=== PATIENT | female | born 1960 | race African-American/Black ===

== ENCOUNTER 2023-01-03 10:14 | Emergency (ER) | payer MEDICAID ==
[~2023-01-03] VITALS: Ht 157.5 cm; Wt 160.0 kg
[2023-01-03 11:46] VITALS: BP 110/67
[2023-01-03] MEDS ORDERED: METH-1182 PO (13:18)
[2023-01-03] MEDS ORDERED: IBUP-1456 PO (13:18)
== END 2023-01-03 13:31 | disposition home or self-care (01) ==
LOC: ER 10:14
DX: S16.1XXA Strain of muscle, fascia and tendon at neck level, initial encounter (principal); S39.012A Strain of muscle, fascia and tendon of lower back, initial encounter; V43.52XA Car driver injured in collision with other type car in traffic accident, initial encounter; Y93.89 Activity, other specified; Y92.89 Other specified places as the place of occurrence of the external cause; Y99.8 Other external cause status
CPT/HCPCS: 72040; 72100

== ENCOUNTER 2023-02-22 13:35 | Inpatient (IN) | payer MEDICAID ==
[~2023-02-22] VITALS: Ht 157.5 cm; Wt 95.0 kg
[~2023-02-22 13:35] MED LIST: IBUP-1456 PO; METH-1182 PO
[2023-02-22] MEDS ORDERED: SODIUM CHLORIDE 0.9% 1,000 ML IV ONE ×3 (14:00→16:30)
[2023-02-22 14:26] LABS: Basophils # (auto) 0.1 10 ^3/uL (0-0.2); Basophils % (auto) 0.5 % (0.0-2.0); Eosinophils # (auto) 0.1 10 ^3/uL (0-0.8); Eosinophils % (auto) 0.7 % (0.0-7.0); Hemoglobin 15.1 g/dL (12.2-16.2); Lymphocytes # (auto) 1.8 10 ^3/uL (0.4-5.4); Lymphocytes % (auto) 11.9 % (10.0-50.0); Mean Corpuscular Hemoglobin 29.1 pg (28.0-32.0); Mean Corpuscular Hgb Conc. 34.4 g/dL (32.0-36.0); Mean Corpuscular Volume 84.7 fL (80.0-100.0); Monocytes # (auto) 0.9 10 ^3/uL (0-1.3); Monocytes % (auto) 6.2 % (0.0-12.0); Neutrophils % (auto) 80.7 % (37.0-80.0); Nucleated Red Blood Cells % 0.1 %; Red Blood Cells 5.19 10^6/uL (4.0-5.20); Red Cell Distribution Width 14.9 % (11.8-14.3); White Blood Cell 14.9 10^3/uL (4.4-10.8)
[2023-02-22 14:49] LABS: Urine Bacteria FEW /hpf (None Seen); Urine Blood 1+ /uL (Negative); Urine Clarity HAZY (Clear); Urine Color Yellow (Yellow); Urine Hyaline Cast FEW /lpf (0 - 2); Urine Mucus FEW (None Seen); Urine Protein, UAD 1+ (Negative); Urine Specific Gravity 1.019 (1.001-1.035); Urine Urobilinogen Normal (Negative); Urine WBC 108 /hpf (0 - 5); Urine WBC Clumps PRESENT /hpf (None Seen); Urine pH 5.5 (5.0-8.0)
[2023-02-22 15:08] LABS: Alanine Aminotransferase 27 U/L (7-40); Albumin 4.4 g/dL (3.2-4.8); Alkaline Phosphatase 79 U/L (46-116); Anion Gap 10.4 (5-15); Aspartate Aminotransferase 11 U/L (13-40); BUN/Creatinine Ratio 13.3 (10.0-20.0); Bilirubin, Total 0.6 mg/dL (0.2-1.0); Blood Urea Nitrogen 12 mg/dL (9-23); Calcium 10.7 mg/dL (8.5-10.1); Carbon Dioxide 21.6 mmol/L (20-30); Chloride 106 mmol/L (98-107); Glucose 176 mg/dL (74-106); Potassium 3.3 mmol/L (3.5-5.1); Sodium 138 mmol/L (136-145); Total Protein 7.1 g/dL (5.7-8.2)
[2023-02-22] MEDS ORDERED: KETOROLAC TROMETH 30 MG/ML 1ML VIAL IV ONE (16:30)
[2023-02-22] MEDS ORDERED: POTASSIUM EFFERVESENT TAB 25 MEQ PO ONE (16:30)
[2023-02-22] MEDS: ACCU-CHEK COMFORT CURVE STRIP VI SCH ×2 (17:00→22:44)
[2023-02-22] MEDS ORDERED: ONDANSETRON HCL 4 MG/2 ML VIAL IV PRN (17:00)
[2023-02-22] MEDS ORDERED: DEXTROSE (50%) 50ML SYRG IV PRN (17:00)
[2023-02-22] MEDS: InsuLIN REG 1unit/0.01ml Soln (100units/ml) SC SCH ×2 (17:00→22:00)
[2023-02-22] MEDS: TAMSULOSIN HYDROCHLORIDE 0.4 MG CAP PO SCH (19:17)
[2023-02-22] MEDS: SODIUM CHLORIDE 0.9% 1,000 ML IV SCH (21:00)
[2023-02-22] MEDS: KETOROLAC TROMETH 30 MG/ML 1ML VIAL IV PRN (22:38)
[2023-02-23 05:00] VITALS: BP 100/62; PULSE 77; RESP 17; TEMP 98.2; O2SAT 99
[2023-02-23] MEDS: InsuLIN REG 1unit/0.01ml Soln (100units/ml) SC SCH ×4 (06:36→21:47)
[2023-02-23] MEDS: ACCU-CHEK COMFORT CURVE STRIP VI SCH ×4 (06:38→21:47)
[2023-02-23] MEDS: SODIUM CHLORIDE 0.9% 1,000 ML IV SCH ×4 (06:38→17:10)
[2023-02-23 07:08] LABS: Alanine Aminotransferase 20 U/L (7-40); Albumin 3.9 g/dL (3.2-4.8); Alkaline Phosphatase 65 U/L (46-116); Anion Gap 6.4 (5-15); Aspartate Aminotransferase 16 U/L (13-40); BUN/Creatinine Ratio 13.7 (10.0-20.0); Bilirubin, Total 0.3 mg/dL (0.2-1.0); Blood Urea Nitrogen 10 mg/dL (9-23); Carbon Dioxide 25.6 mmol/L (20-30); Chloride 108 mmol/L (98-107); Glucose 121 mg/dL (74-106); Potassium 3.7 mmol/L (3.5-5.1); Sodium 140 mmol/L (136-145); Total Protein 6.6 g/dL (5.7-8.2)
[2023-02-23 07:40] LABS: Basophils # (auto) 0.1 10 ^3/uL (0-0.2); Basophils % (auto) 0.7 % (0.0-2.0); Eosinophils # (auto) 0.4 10 ^3/uL (0-0.8); Eosinophils % (auto) 4.1 % (0.0-7.0); Hematocrit 39.7 % (36.0-46.0); Hemoglobin 13.7 g/dL (12.2-16.2); Lymphocytes # (auto) 1.8 10 ^3/uL (0.4-5.4); Mean Corpuscular Hgb Conc. 34.4 g/dL (32.0-36.0); Mean Corpuscular Volume 87.2 fL (80.0-100.0); Monocytes # (auto) 1.1 10 ^3/uL (0-1.3); Monocytes % (auto) 11.7 % (0.0-12.0); Neutrophils % (auto) 64.5 % (37.0-80.0); Nucleated Red Blood Cells % 0.1 %; Red Blood Cells 4.55 10^6/uL (4.0-5.20); Red Cell Distribution Width 14.6 % (11.8-14.3); White Blood Cell 9.3 10^3/uL (4.4-10.8)
[2023-02-23] MEDS: cefTRIAXone 1GM/50ML D5W 50 ML IV SCH (08:46)
[2023-02-23 09:00] VITALS: BP 107/73; PULSE 76; RESP 18; TEMP 98.6; O2SAT 96
[2023-02-23] MEDS: KETOROLAC TROMETH 30 MG/ML 1ML VIAL IV PRN (11:29)
[2023-02-23] MEDS ORDERED: MECLIZINE HCL 25 MG TAB PO ONE (12:30)
[2023-02-23] MEDS ORDERED: ENOXAPARIN SOD 40 MG/0.4 ML SYRINGE SC ONE (12:45)
[2023-02-23 13:00] VITALS: BP 110/62; PULSE 74; RESP 18; TEMP 97.6; O2SAT 98
[2023-02-23 17:00] VITALS: BP 99/56; PULSE 78; RESP 17; TEMP 97.9; O2SAT 97
[2023-02-23] MEDS: TAMSULOSIN HYDROCHLORIDE 0.4 MG CAP PO SCH (17:10)
[2023-02-23 20:00] VITALS: RESP 18
[2023-02-23] MEDS ORDERED: MECLIZINE HCL 25 MG TAB PO PRN (20:00)
[2023-02-23] MEDS: MORPHINE SULFATE INJ 2 MG/ml SYRG IV PRN (21:57)
[2023-02-23 22:31] VITALS: BP 107/65; PULSE 77; RESP 18; TEMP 98.7; O2SAT 97
[2023-02-24] MEDS: SODIUM CHLORIDE 0.9% 1,000 ML IV SCH ×3 (02:20→19:03)
[2023-02-24 04:57] VITALS: BP 101/67; PULSE 79; RESP 18; TEMP 98.2; O2SAT 96
[2023-02-24] MEDS: ACCU-CHEK COMFORT CURVE STRIP VI SCH ×4 (06:08→21:23)
[2023-02-24 06:09] LABS: Basophils # (auto) 0.1 10 ^3/uL (0-0.2); Eosinophils # (auto) 0.4 10 ^3/uL (0-0.8); Eosinophils % (auto) 4.9 % (0.0-7.0); Hematocrit 38.9 % (36.0-46.0); Hemoglobin 13.3 g/dL (12.2-16.2); Lymphocytes # (auto) 2.3 10 ^3/uL (0.4-5.4); Lymphocytes % (auto) 30.7 % (10.0-50.0); Mean Corpuscular Hemoglobin 29.4 pg (28.0-32.0); Mean Corpuscular Hgb Conc. 34.2 g/dL (32.0-36.0); Mean Corpuscular Volume 85.8 fL (80.0-100.0); Monocytes # (auto) 0.8 10 ^3/uL (0-1.3); Neutrophils % (auto) 52.4 % (37.0-80.0); Nucleated Red Blood Cells % 0.1 %; Red Blood Cells 4.53 10^6/uL (4.0-5.20); Red Cell Distribution Width 14.7 % (11.8-14.3); White Blood Cell 7.5 10^3/uL (4.4-10.8)
[2023-02-24] MEDS: InsuLIN REG 1unit/0.01ml Soln (100units/ml) SC SCH ×4 (06:09→21:23)
[2023-02-24 06:37] LABS: Alanine Aminotransferase 28 U/L (7-40); Albumin 3.8 g/dL (3.2-4.8); Alkaline Phosphatase 62 U/L (46-116); Anion Gap 6.1 (5-15); Aspartate Aminotransferase 26 U/L (13-40); BUN/Creatinine Ratio 9.5 (10.0-20.0); Bilirubin, Total 0.3 mg/dL (0.2-1.0); Blood Urea Nitrogen 6 mg/dL (9-23); Carbon Dioxide 24.9 mmol/L (20-30); Chloride 110 mmol/L (98-107); Glucose 114 mg/dL (74-106); Potassium 3.7 mmol/L (3.5-5.1); Sodium 141 mmol/L (136-145); Total Protein 6.4 g/dL (5.7-8.2)
[2023-02-24 09:00] VITALS: BP 100/63; PULSE 75; RESP 18; TEMP 98; O2SAT 98
[2023-02-24] MEDS: cefTRIAXone 1GM/50ML D5W 50 ML IV SCH (09:18)
[2023-02-24] MEDS ORDERED: ENOXAPARIN SOD 40 MG/0.4 ML SYRINGE SC SCH (10:00)
[2023-02-24] MEDS: KETOROLAC TROMETH 30 MG/ML 1ML VIAL IV PRN (12:25)
[2023-02-24 13:00] VITALS: BP 119/95; PULSE 65; RESP 18; TEMP 97.8; O2SAT 94
[2023-02-24 17:00] VITALS: BP 103/58; PULSE 74; RESP 18; TEMP 97.7; O2SAT 93
[2023-02-24] MEDS: TAMSULOSIN HYDROCHLORIDE 0.4 MG CAP PO SCH (17:41)
[2023-02-24 20:00] VITALS: RESP 18
[2023-02-24] MEDS: MORPHINE SULFATE INJ 2 MG/ml SYRG IV PRN (21:35)
[2023-02-24 22:53] VITALS: BP 113/52; PULSE 79; RESP 18; TEMP 98.4; O2SAT 97
[2023-02-25] VITALS (7 sets, daily range): BP systolic 108–119; BP diastolic 61–75; PULSE 60–88; RESP 18–21; TEMP 97.5–98.2; O2SAT 97–98
[2023-02-25] MEDS: SODIUM CHLORIDE 0.9% 1,000 ML IV SCH ×4 (03:20→22:36)
[2023-02-25] MEDS: ACCU-CHEK COMFORT CURVE STRIP VI SCH ×4 (06:07→22:20)
[2023-02-25] MEDS: InsuLIN REG 1unit/0.01ml Soln (100units/ml) SC SCH ×4 (06:12→22:47)
[2023-02-25] MEDS: cefTRIAXone 1GM/50ML D5W 50 ML IV SCH (11:28)
[2023-02-25] MEDS: MORPHINE SULFATE INJ 2 MG/ml SYRG IV PRN ×2 (11:29→22:31)
[2023-02-25] MEDS: MANNITOL FTV 25% 12.5 GM/50 ML 50 ML IV ONE ×2 (12:45→18:16)
[2023-02-25] MEDS: TAMSULOSIN HYDROCHLORIDE 0.4 MG CAP PO SCH (18:16)
[2023-02-25] MEDS: DOCUSATE SOD 100 MG CAP PO PRN (22:29)
[2023-02-26] VITALS (7 sets, daily range): BP systolic 96–121; BP diastolic 56–87; PULSE 53–73; RESP 15–22; TEMP 97.7–98.2; O2SAT 94–99
[2023-02-26 06:21] LABS: Basophils # (auto) 0.1 10 ^3/uL (0-0.2); Basophils % (auto) 0.9 % (0.0-2.0); Eosinophils # (auto) 0.4 10 ^3/uL (0-0.8); Eosinophils % (auto) 4.8 % (0.0-7.0); Hematocrit 41.6 % (36.0-46.0); Hemoglobin 14.1 g/dL (12.2-16.2); Lymphocytes # (auto) 2.5 10 ^3/uL (0.4-5.4); Lymphocytes % (auto) 29.9 % (10.0-50.0); Mean Corpuscular Volume 85.2 fL (80.0-100.0); Monocytes # (auto) 0.5 10 ^3/uL (0-1.3); Monocytes % (auto) 5.7 % (0.0-12.0); Neutrophils # (auto) 4.8 10 ^3/uL (1.6-8.6); Neutrophils % (auto) 58.7 % (37.0-80.0); Nucleated Red Blood Cells % 0.1 %; Red Blood Cells 4.89 10^6/uL (4.0-5.20); Red Cell Distribution Width 14.4 % (11.8-14.3); White Blood Cell 8.2 10^3/uL (4.4-10.8)
[2023-02-26 06:24] LABS: Chloride 107 mmol/L (98-107); Potassium 3.9 mmol/L (3.5-5.1); Sodium 140 mmol/L (136-145)
[2023-02-26 06:25] LABS: Anion Gap 6.4 (5-15); Carbon Dioxide 26.6 mmol/L (20-30)
[2023-02-26 06:26] LABS: Calcium 10.4 mg/dL (8.7-10.4)
[2023-02-26 06:30] LABS: Blood Urea Nitrogen 5 mg/dL (9-23); Glucose 111 mg/dL (74-106)
[2023-02-26] MEDS ORDERED: HYDROcodone-ACET 5/325MG TAB PO ONE (06:30)
[2023-02-26] MEDS: InsuLIN REG 1unit/0.01ml Soln (100units/ml) SC SCH ×4 (06:39→21:44)
[2023-02-26] MEDS: ACCU-CHEK COMFORT CURVE STRIP VI SCH ×4 (07:00→21:57)
[2023-02-26 07:13] LABS: BUN/Creatinine Ratio 7.7 (10.0-20.0)
[2023-02-26] MEDS: cefTRIAXone 1GM/50ML D5W 50 ML IV SCH (08:08)
[2023-02-26] MEDS: SODIUM CHLORIDE 0.9% 1,000 ML IV SCH ×2 (12:40→22:03)
[2023-02-26] MEDS ORDERED: MANNITOL FTV 25% 12.5 GM/50 ML 50 ML IV ONE (13:00)
[2023-02-26] MEDS: HYDROcodone-ACET 5/325MG TAB PO PRN ×2 (13:07→21:50)
[2023-02-26] MEDS: DOCUSATE SOD 100 MG CAP PO PRN (21:56)
[2023-02-27] MEDS: SODIUM CHLORIDE 0.9% 1,000 ML IV SCH ×3 (05:20→22:00)
[2023-02-27 05:28] VITALS: BP 131/72; PULSE 53; RESP 14; TEMP 97; O2SAT 98
[2023-02-27] MEDS: ACCU-CHEK COMFORT CURVE STRIP VI SCH ×4 (06:30→22:00)
[2023-02-27] MEDS: InsuLIN REG 1unit/0.01ml Soln (100units/ml) SC SCH ×4 (06:32→22:00)
[2023-02-27 06:56] LABS: Basophils # (auto) 0.1 10 ^3/uL (0-0.2); Basophils % (auto) 0.9 % (0.0-2.0); Eosinophils # (auto) 0.4 10 ^3/uL (0-0.8); Eosinophils % (auto) 3.9 % (0.0-7.0); Hemoglobin 13.9 g/dL (12.2-16.2); Lymphocytes # (auto) 3.2 10 ^3/uL (0.4-5.4); Mean Corpuscular Hemoglobin 29.1 pg (28.0-32.0); Mean Corpuscular Hgb Conc. 33.9 g/dL (32.0-36.0); Mean Corpuscular Volume 85.8 fL (80.0-100.0); Monocytes # (auto) 0.5 10 ^3/uL (0-1.3); Monocytes % (auto) 4.7 % (0.0-12.0); Neutrophils # (auto) 6.7 10 ^3/uL (1.6-8.6); Neutrophils % (auto) 61.5 % (37.0-80.0); Nucleated Red Blood Cells % 0.1 %; Red Blood Cells 4.78 10^6/uL (4.0-5.20); Red Cell Distribution Width 14.4 % (11.8-14.3)
[2023-02-27 07:12] LABS: Alanine Aminotransferase 68 U/L (7-40); Alkaline Phosphatase 71 U/L (46-116); Anion Gap 4.9 (5-15); Aspartate Aminotransferase 56 U/L (13-40); BUN/Creatinine Ratio 9.1 (10.0-20.0); Blood Urea Nitrogen 7 mg/dL (9-23); Calcium 10.4 mg/dL (8.7-10.4); Carbon Dioxide 27.1 mmol/L (20-30); Chloride 108 mmol/L (98-107); Glucose 119 mg/dL (74-106); Sodium 140 mmol/L (136-145)
[2023-02-27 07:13] LABS: Bilirubin, Total 0.4 mg/dL (0.2-1.0); Total Protein 6.7 g/dL (5.7-8.2)
[2023-02-27 07:51] VITALS: PULSE 71; RESP 18
[2023-02-27] MEDS: cefTRIAXone 1GM/50ML D5W 50 ML IV SCH (07:54)
[2023-02-27 09:00] VITALS: BP 127/74; PULSE 74; RESP 17; TEMP 97.5; O2SAT 96
[2023-02-27] MEDS: HYDROcodone-ACET 5/325MG TAB PO PRN ×2 (10:16→18:31)
[2023-02-27 13:00] VITALS: BP 114/68; PULSE 79; RESP 18; TEMP 97.8; O2SAT 96
[2023-02-27 17:00] VITALS: BP 104/65; PULSE 71; RESP 17; TEMP 97.7; O2SAT 98
[2023-02-27] MEDS: TAMSULOSIN HYDROCHLORIDE 0.4 MG CAP PO SCH (18:00)
[2023-02-27 20:00] VITALS: RESP 18
[2023-02-28 05:31] VITALS: BP 114/60; PULSE 64; RESP 15; TEMP 97.5; O2SAT 98
[2023-02-28] MEDS: SODIUM CHLORIDE 0.9% 1,000 ML IV SCH ×3 (06:20→23:00)
[2023-02-28] MEDS: InsuLIN REG 1unit/0.01ml Soln (100units/ml) SC SCH ×4 (06:38→22:00)
[2023-02-28] MEDS: ACCU-CHEK COMFORT CURVE STRIP VI SCH ×4 (06:38→22:00)
[2023-02-28 07:32] LABS: Basophils # (auto) 0.1 10 ^3/uL (0-0.2); Basophils % (auto) 0.8 % (0.0-2.0); Eosinophils # (auto) 0.4 10 ^3/uL (0-0.8); Eosinophils % (auto) 4.2 % (0.0-7.0); Hematocrit 40.6 % (36.0-46.0); Lymphocytes % (auto) 29.9 % (10.0-50.0); Mean Corpuscular Hemoglobin 29.2 pg (28.0-32.0); Mean Corpuscular Hgb Conc. 34.4 g/dL (32.0-36.0); Monocytes # (auto) 0.5 10 ^3/uL (0-1.3); Monocytes % (auto) 4.6 % (0.0-12.0); Neutrophils # (auto) 6.1 10 ^3/uL (1.6-8.6); Neutrophils % (auto) 60.5 % (37.0-80.0); Nucleated Red Blood Cells % 0.1 %; Red Blood Cells 4.78 10^6/uL (4.0-5.20); Red Cell Distribution Width 14.6 % (11.8-14.3)
[2023-02-28 07:34] LABS: INR 1.16 (0.9-1.15); Partial Thromboplastin Time 25.9 SEC (24.5-34.5); Prothrombin Time 12.1 sec (9.3-11.8)
[2023-02-28 08:24] LABS: Alanine Aminotransferase 59 U/L (7-40); Alkaline Phosphatase 72 U/L (46-116); Anion Gap 5.7 (5-15); Aspartate Aminotransferase 31 U/L (13-40); BUN/Creatinine Ratio 8.9 (10.0-20.0); Blood Urea Nitrogen 7 mg/dL (9-23); Calcium 10.4 mg/dL (8.7-10.4); Carbon Dioxide 27.3 mmol/L (20-30); Chloride 107 mmol/L (98-107); Glucose 119 mg/dL (74-106); Potassium 4.1 mmol/L (3.5-5.1); Sodium 140 mmol/L (136-145)
[2023-02-28 08:25] LABS: Bilirubin, Total 0.4 mg/dL (0.2-1.0); Total Protein 6.7 g/dL (5.7-8.2)
[2023-02-28] MEDS: cefTRIAXone 1GM/50ML D5W 50 ML IV SCH (09:00)
[2023-02-28] MEDS ORDERED: CIPROFLOXACIN 400MG/200ML 200 ML IV ONE (10:21)
[2023-02-28] MEDS ORDERED: MIDAZOLAM HCL 2MG/2ML 2ml VIAL (1mg/ml) ONE (10:49)
[2023-02-28] MEDS ORDERED: fentaNYL CITRATE 100 MCG/2 ML VL ONE (10:49)
[2023-02-28] MEDS ORDERED: MANNITOL FTV 25% 12.5 GM/50 ML 50 ML IV ONE (12:15)
[2023-02-28] MEDS ORDERED: PROPOFOL 10 MG/ML 20 ML IV ONE (12:52)
[2023-02-28] MEDS ORDERED: ONDANSETRON HCL 4 MG/2 ML VIAL ONE (12:53)
[2023-02-28 12:56] VITALS: RESP 18; O2SAT 96
[2023-02-28] MEDS: HYDROcodone-ACET 5/325MG TAB PO PRN ×2 (15:28→21:01)
[2023-02-28] MEDS: TAMSULOSIN HYDROCHLORIDE 0.4 MG CAP PO SCH (17:55)
[2023-02-28 20:00] VITALS: PULSE 70; RESP 19; O2SAT 93
[2023-02-28] MEDS: DOCUSATE SOD 100 MG CAP PO PRN (21:01)
[2023-03-01 05:00] VITALS: BP 102/60; PULSE 73; RESP 19; TEMP 97.9; O2SAT 96
[2023-03-01] MEDS: ACCU-CHEK COMFORT CURVE STRIP VI SCH ×2 (05:24→11:32)
[2023-03-01] MEDS: InsuLIN REG 1unit/0.01ml Soln (100units/ml) SC SCH ×2 (05:24→11:30)
[2023-03-01] MEDS: SODIUM CHLORIDE 0.9% 1,000 ML IV SCH (05:25)
[2023-03-01] MEDS: HYDROcodone-ACET 5/325MG TAB PO PRN (05:30)
[2023-03-01 06:46] LABS: Chloride 109 mmol/L (98-107); Sodium 142 mmol/L (136-145)
[2023-03-01 06:52] LABS: BUN/Creatinine Ratio 10.4 (10.0-20.0); Blood Urea Nitrogen 8 mg/dL (9-23); Glucose 119 mg/dL (74-106)
[2023-03-01 07:05] LABS: Basophils # (auto) 0.1 10 ^3/uL (0-0.2); Basophils % (auto) 0.7 % (0.0-2.0); Eosinophils # (auto) 0.4 10 ^3/uL (0-0.8); Eosinophils % (auto) 3.4 % (0.0-7.0); Hematocrit 38.1 % (36.0-46.0); Lymphocytes # (auto) 2.7 10 ^3/uL (0.4-5.4); Lymphocytes % (auto) 25.5 % (10.0-50.0); Mean Corpuscular Hemoglobin 29.2 pg (28.0-32.0); Mean Corpuscular Hgb Conc. 34.2 g/dL (32.0-36.0); Mean Corpuscular Volume 85.3 fL (80.0-100.0); Monocytes # (auto) 0.6 10 ^3/uL (0-1.3); Monocytes % (auto) 6.1 % (0.0-12.0); Neutrophils # (auto) 6.8 10 ^3/uL (1.6-8.6); Neutrophils % (auto) 64.3 % (37.0-80.0); Nucleated Red Blood Cells % 0.1 %; Red Blood Cells 4.46 10^6/uL (4.0-5.20); Red Cell Distribution Width 14.5 % (11.8-14.3); White Blood Cell 10.6 10^3/uL (4.4-10.8)
[2023-03-01 08:00] VITALS: PULSE 58; RESP 15; O2SAT 97
[2023-03-01] MEDS ORDERED: MECL1TAB32 PO (08:54)
[2023-03-01] MEDS: cefTRIAXone 1GM/50ML D5W 50 ML IV SCH (09:00)
[2023-03-01] MEDS ORDERED: ACET-1079 PO (09:12)
[2023-03-01] MEDS ORDERED: CEPH250C PO (09:12)
[2023-03-01 09:13] VITALS: BP 105/67; PULSE 58; RESP 15; TEMP 98.4; O2SAT 97
[2023-03-01 12:23] VITALS: BP 105/67; PULSE 58; RESP 15; TEMP 98.4; O2SAT 97
== END 2023-03-01 12:58 | disposition home or self-care (01) | DRG 443 ==
LOC: ER 13:35 → OVERFLOW 16:57 → WEST WING 21:04
PROVIDERS: ADMIT Internal Medicine; ATTEND Student in an Organized Health Care Education/Training Program
PROC: 0TC78ZZ Extirpation of Matter from Left Ureter, Via Natural or Artificial Opening Endoscopic (ICD-10-PCS; 2023-02-28)
PROC: 0TC08ZZ Extirpation of Matter from Right Kidney, Via Natural or Artificial Opening Endoscopic (ICD-10-PCS; principal; 2023-02-28 10:54)
DX: N13.6 Pyonephrosis (principal); E66.9 Obesity, unspecified; E87.6 Hypokalemia; F10.10 Alcohol abuse, uncomplicated; Y90.9 Presence of alcohol in blood, level not specified; I10 Essential (primary) hypertension; Z87.891 Personal history of nicotine dependence; Z90.710 Acquired absence of both cervix and uterus; Z68.30 Body mass index [BMI] 30.0-30.9, adult; Z80.8 Family history of malignant neoplasm of other organs or systems
CPT/HCPCS: 36415; 70450; 74018; 74176; 76775; 80048; 80053; 81001; 82607; 82962; 83036; 84443; 84484; 85025; 85610; 85730; 86850; 86900; 86901; 87086; 96361; 96374; G0378; J0696; J1815; J1885; J2250; J2405; J2704